=== PATIENT | female | born 1975 | race Hispanic/Latino ===

== ENCOUNTER 2020-06-06 05:36 | Observation (INO) | payer BC ==
[2020-06-05 11:00] VITALS: BP 122/68
[2020-06-05 11:21] LABS: BASOPHILS % (AUTO) 0.3 % (0.0-5.0); EOSINOPHILS % (AUTO) 1.7 % (0.0-8.0); HEMATOCRIT 38.5 % (36-48); LYMPHOCYTES % (AUTO) 29.7 % (21.0-51.0); MEAN CORPUSCULAR HEMOGLOBIN 24.7 pg (27.0-33.0); MEAN CORPUSCULAR HGB CONC 31.9 g/dL (32.0-36.0); MEAN CORPUSCULAR VOLUME 77.5 fL (79-99); MONOCYTES % (AUTO) 5.2 % (3.0-13.0); NEUTROPHILS % (AUTO) 62.8 % (40.0-77.0); PLATELET COUNT (AUTO) 195 K/uL (130-400); RED BLOOD CELL COUNT(AUTO) 4.97 MIL/uL (4.00-5.50); RED CELL DISTRIBUTION WIDTH 13.8 % (11.0-15.5)
[~2020-06-06] VITALS: Ht 170.2 cm; Wt 82.8 kg
[2020-06-06] VITALS (17 sets, daily range): BP systolic 112–150; BP diastolic 61–83
[~2020-06-06 05:36] MED LIST: GLIP1TAB5 PO; INSU100C6 SQ; INSU100V12 SQ; LACTATED RINGERS 1000ML 1,000 ML IV SCH; ROSU10TA28 PO
[2020-06-06 06:21] LABS: CREATININE 0.7 mg/dL (0.5-1.5); POTASSIUM 4.1 mmol/L (3.5-5.1)
[2020-06-06] MEDS ORDERED: SEMA1PEN3 SQ (06:38)
[2020-06-06] MEDS ORDERED: SODIUM CHLORIDE 0.9% 1000ML 1,000 ML IV ONE (06:47)
[2020-06-06] MEDS ORDERED: CLINDAMYCIN 600 MG/D5% WATER 50 ML IV ONE (06:48)
[2020-06-06] MEDS: LEVOFLOXACIN 500 MG/D5W 100 ML 100 ML IV SCH ×2 (07:00→08:30)
[2020-06-06] MEDS ORDERED: PROPOFOL 10 MG/ML 20ML VIAL IV ONE (07:56)
[2020-06-06] MEDS ORDERED: GLYCOPYRROLATE 1 MG/5 ML SYRINGE ONE (07:56)
[2020-06-06] MEDS ORDERED: LIDOCAINE PF 2% 5ML ABBOJECT ONE ×2 (07:56→09:45)
[2020-06-06] MEDS ORDERED: DEXAMETHASONE SOD PHOSPHATE 10MG/ML 1ML VIAL ONE (07:56)
[2020-06-06] MEDS ORDERED: SUCCINYLCHOLINE CHLORIDE 20 MG/ML 10 ML VIAL ONE (07:56)
[2020-06-06] MEDS ORDERED: ONDANSETRON HCL 4 MG/2 ML VIAL ONE (07:56)
[2020-06-06] MEDS ORDERED: MIDAZOLAM HCL 1 MG/ML 2ML VIAL ONE (07:57)
[2020-06-06] MEDS ORDERED: ROCURONIUM 10MG/1ML SYR 10 MG/ML ML ONE (07:57)
[2020-06-06] MEDS ORDERED: NEOSTIGMINE 5MG/5ML SYR IV ONE (07:57)
[2020-06-06] MEDS ORDERED: FENTANYL CITRATE PF 50 MCG/1 ML 2ML VIAL ONE ×3 (07:57→09:53)
[2020-06-06] MEDS ORDERED: CLINDAMYCIN 600 MG/D5% WATER 50 ML IV PRN (08:00)
[2020-06-06] MEDS ORDERED: MEPERIDINE-PF 75 MG/ML SYG IM PRN (11:30)
[2020-06-06] MEDS ORDERED: PROMETHAZINE HCL 25 MG/ML 1ML AMPULE IM PRN ×2 (11:30)
[2020-06-06] MEDS ORDERED: IBUPROFEN 600 MG TABLET PO PRN (11:30)
[2020-06-06] MEDS ORDERED: BISACODYL 10 MG SUPP.RECT RC PRN (11:30)
[2020-06-06] MEDS: LACTATED RINGERS 1000ML 1,000 ML IV SCH ×2 (11:56→18:57)
[2020-06-06] MEDS: SIMETHICONE 80 MG TAB.CHEW PO PRN ×2 (16:41→21:16)
[2020-06-06] MEDS: ACETAMINOPHEN-CODEINE 300/30MG TAB PO PRN ×2 (18:58→23:49)
[2020-06-06] MEDS: INSULIN HUMULIN R 100 UNIT/ML 3ML SQ SCH (21:00)
[2020-06-06] MEDS: DOCUSATE SODIUM 100 MG CAP PO PRN (21:16)
[2020-06-07] MEDS ORDERED: HYDROCODONE/ACETAMINOPHEN 5/325 MG TAB PO PRN (02:15)
[2020-06-07] MEDS ORDERED: IBUPROFEN 800 MG TAB PO PRN (02:15)
[2020-06-07] MEDS: LACTATED RINGERS 1000ML 1,000 ML IV SCH (03:22)
[2020-06-07 04:01] VITALS: BP 109/70
[2020-06-07 05:23] LABS: HEMATOCRIT 32.5 % (36-48); MEAN CORPUSCULAR HEMOGLOBIN 24.7 pg (27.0-33.0); MEAN CORPUSCULAR HGB CONC 31.7 g/dL (32.0-36.0); MEAN CORPUSCULAR VOLUME 77.9 fL (79-99); RED BLOOD CELL COUNT(AUTO) 4.17 MIL/uL (4.00-5.50); RED CELL DISTRIBUTION WIDTH 13.6 % (11.0-15.5); WHITE BLOOD COUNT (AUTO) 10.1 K/uL (4.8-10.8)
[2020-06-07] MEDS: INSULIN HUMULIN R 100 UNIT/ML 3ML SQ SCH ×2 (07:30→11:30)
[2020-06-07 07:32] VITALS: BP 117/60
[2020-06-07] MEDS ORDERED: ACET1TAB25 PO (08:45)
[2020-06-07] MEDS ORDERED: FERS325 PO (08:46)
[2020-06-07] MEDS: SIMETHICONE 80 MG TAB.CHEW PO PRN (09:03)
[2020-06-07] MEDS: DOCUSATE SODIUM 100 MG CAP PO PRN (09:03)
[2020-06-07 11:01] VITALS: BP 100/65
[2020-06-07] MEDS ORDERED: ACETAMINOPHEN-CODEINE 300/30MG TAB PO PRN (12:00)
== END 2020-06-07 13:50 | disposition home or self-care (01) ==
LOC: DAH 05:36 → WSH 10:08 → DAH 10:08 → WSH 11:10
PROVIDERS: ADMIT Obstetrics & Gynecology; ATTEND Obstetrics & Gynecology
DX: D25.9 Leiomyoma of uterus, unspecified (principal); Z20.822 Contact with and (suspected) exposure to COVID-19; N92.1 Excessive and frequent menstruation with irregular cycle; K46.9 Unspecified abdominal hernia without obstruction or gangrene; D50.0 Iron deficiency anemia secondary to blood loss (chronic); E11.9 Type 2 diabetes mellitus without complications; Z79.899 Other long term (current) drug therapy; Z88.0 Allergy status to penicillin
CPT/HCPCS: 36415 ×3; 58292; 80048; 82948 ×6; 84703; 85025; 85027; 86850; 86900; 86901; 96360; 96361 ×2; 96372; A4215; A4221; A4222; A4223; A4351; A4510; A4600; A4606; A4663; A4930; C9803; G0378 ×28; J0330; J1100; J1956 ×2; J2001 ×2; J2175; J2250; J2405; J2550; J2704; J2710; J3010 ×3; J3490 ×2; J7030 ×2; J7120 ×2; U0003